=== PATIENT | female | born 1965 | race Caucasian/White ===

== ENCOUNTER → 2016-10-23 | Outpatient (CLI) | payer OTHER | LOC: WI 15:26 | PROVIDERS: ATTEND Specialist | DX: Z12.31 Encounter for screening mammogram for malignant neoplasm of breast (principal) | CPT/HCPCS: 77067; G0202 ==

== ENCOUNTER 2019-05-05 06:48 | Day surgery (SDC) | payer BC, OTHER ==
[~2019-05-05 06:48] MED LIST: KETOROLAC TROMETHAMINE 0.45% 4 DROP/0.4 ML DROPERETTE OS PRN
[2019-05-05] MEDS ORDERED: ONDANSETRON HCL INJ/PF 4 MG/2 ML SDV ONE (07:10)
[2019-05-05] MEDS ORDERED: FENTANYL CITRATE INJ/PF 100 MCG/2 ML AMPUL ONE (07:11)
[2019-05-05] MEDS ORDERED: MIDAZOLAM 2 MG/2 ML INJ ONE ×2 (07:11→08:28)
[2019-05-05] MEDS: TETRACAINE HCL 0.5% OPH SOLN 4 ML OS PRN ×4 (07:20→07:58)
[2019-05-05] MEDS: CYCLOPENTOLATE 0.2%/PHENYLEPHRINE 1% OPH SOLN 2 ML OS PRN ×3 (07:20→07:40)
[2019-05-05] MEDS: BESIFLOXACIN HCL 0.6% OPH SUSP 5 ML BOTTLE OS PRN ×4 (07:20→08:22)
[2019-05-05] MEDS: TROPICAMIDE 1% OPH SOLN 15 ML OS PRN ×3 (07:20→07:40)
[2019-05-05] MEDS: CHONDR SU A NA/HYALUR INTRAOC KIT (SURGICARE) ONE ×2 (08:08)
[2019-05-05] MEDS: EPINEPHRINE INJ/PF 1 MG/1 ML AMPULE ONE ×2 (08:08)
[2019-05-05] MEDS: LIDOCAINE 1%/PHENYLEPHRINE 1.5% 1 ML VIAL ONE ×2 (08:08)
[2019-05-05] MEDS: DORZOLAMIDE HCL 2%/TIMOLOL MALEAT 0.5% OPH SOLN 10 ML OS PRN ×2 (08:22)
--- NOTE | 2019-05-05 13:53 | Operative Report ---
Operative Report-[facility] Operative Report: DATE OF SURGERY: 05/05/2019 PREOPERATIVE DIAGNOSIS: Cataracts, left eye POSTOPERATIVE DIAGNOSIS: Cataract, left eye OPERATION: Cataract extraction with insertion of an IOL of the left eye. Intraocular Lens Model: [21.0 sn60wf] reason for surgery was increased glare at night making it difficulty to drive SURGEON: Dean Sawyer MD ANESTHESIA: Topical PROCEDURE: After obtaining appropriate consent, the patient's left eye was prepped and draped in a sterile fashion as well as the surgeon in the sterile manner and cataract surgery was started. First a paracentesis blade was used to make a side-port incision. Viscoelastic was used to inflate the anterior chamber. Next a 2.4 mm incision was made with a 2.4 mm blade, clear corneal temporarily. A continuous capsulorrhexis was made using a cystotome and Utrata forceps. Following this hydrodissection was carried out to make commands fully loose and mobile and it was rotated 90 degrees. Following this, a divide and conquer technique was used to phacoemulsify the lens. The remaining cortex was removed with an irrigation/aspiration. Provisc was instilled into the capsular bag to inflate the bag.The intracular lens was placed. The remaining viscoelastic material was removed with irrigation/aspiration. Following this, the incision was found to be watertight. Besivance and Cosopt was instilled into the eye and a protective shield was placed over the eye. The patient was turned to the postoperative recovery in a stable condition.
== END 2019-05-05 09:05 | disposition home or self-care (01) ==
LOC: SC 06:48
PROVIDERS: ATTEND Internal Medicine
DX: H25.13 Age-related nuclear cataract, bilateral (principal); H40.013 Open angle with borderline findings, low risk, bilateral; H53.2 Diplopia; H04.123 Dry eye syndrome of bilateral lacrimal glands
CPT/HCPCS: 66984; V2632; J2250; J3490 ×2; J0171; J3010; J2405; J2370; 142

== ENCOUNTER 2019-05-26 06:34 | Day surgery (SDC) | payer BC ==
[~2019-05-26 06:34] MED LIST changes: +KETOROLAC TROMETHAMINE 0.45% 4 DROP/0.4 ML DROPERETTE OD PRN; -KETOROLAC TROMETHAMINE 0.45% 4 DROP/0.4 ML DROPERETTE OS PRN
[2019-05-26] MEDS: BESIFLOXACIN HCL 0.6% OPH SUSP 5 ML BOTTLE OD PRN ×4 (06:55→07:46)
[2019-05-26] MEDS: TROPICAMIDE 1% OPH SOLN 15 ML OD PRN ×3 (06:55→07:15)
[2019-05-26] MEDS: CYCLOPENTOLATE 0.2%/PHENYLEPHRINE 1% OPH SOLN 2 ML OD PRN ×3 (06:55→07:15)
[2019-05-26] MEDS: TETRACAINE HCL 0.5% OPH SOLN 4 ML OD PRN ×3 (06:55→07:28)
[2019-05-26] MEDS ORDERED: MIDAZOLAM 2 MG/2 ML INJ ONE (06:58)
[2019-05-26] MEDS ORDERED: ONDANSETRON HCL INJ/PF 4 MG/2 ML SDV ONE (06:58)
[2019-05-26] MEDS ORDERED: FENTANYL CITRATE INJ/PF 100 MCG/2 ML AMPUL ONE (06:58)
[2019-05-26] MEDS ORDERED: EPINEPHRINE INJ/PF 1 MG/1 ML AMPULE ONE (07:11)
[2019-05-26] MEDS ORDERED: LIDOCAINE 1%/PHENYLEPHRINE 1.5% 1 ML VIAL ONE (07:11)
[2019-05-26] MEDS ORDERED: CHONDR SU A NA/HYALUR INTRAOC KIT (SURGICARE) ONE (07:12)
[2019-05-26] MEDS: DORZOLAMIDE HCL 2%/TIMOLOL MALEAT 0.5% OPH SOLN 10 ML OD PRN ×2 (07:46)
--- NOTE | 2019-05-26 14:00 | Operative Report ---
Operative Report-[facility] Operative Report: DATE OF SURGERY: [05/26/2019] PREOPERATIVE DIAGNOSIS: Cataract, right eye POSTOPERATIVE DIAGNOSIS: Cataract, right eye OPERATION: Cataract extraction with insertion of an IOL of the right eye. Intraocular Lens Model: [21.5 sn60wf] Reason for surgery was difficulty from glare from headlights SURGEON: Dean Sawyer MD ANESTHESIA: Topical PROCEDURE: After obtaining appropriate consent, the patient's right eye was prepped and draped in a sterile fashion as well as the surgeon in the sterile manner and cataract surgery was started. First a paracentesis blade was used to make a side-port incision. Viscoelastic was used to inflate the anterior chamber. Next a 2.4 mm incision was made with a 2.4 mm blade, clear corneal temporarily. A continuous capsulorrhexis was made using a cystotome and Utrata forceps. Following this hydrodissection was carried out to make the karen fully loose and mobile and it was rotated. Following this, a divide and conquer technique was used to phacoemulsify the karen. The remaining cortex was removed with an irrigation/aspiration. Provisc was instilled into the capsular bag to inflate the bag. The intraocular lens was placed. The remaining viscoelastic material was removed with irrigation/aspiration. Following this, the incision was found to be watertight. Besivance and Cosopt was instilled into the eye and a protective shield was placed over the eye. The patient was reurned to the postoperative recovery in a stable condition.
== END 2019-05-26 08:19 | disposition home or self-care (01) ==
LOC: SC 06:34
PROVIDERS: ATTEND Internal Medicine
DX: H25.11 Age-related nuclear cataract, right eye (principal); Z96.1 Presence of intraocular lens
CPT/HCPCS: 66984; 00142; V2632; J2250; J3490 ×2; J0171; J3010; J2405; J2370; 142

== ENCOUNTER → 2019-06-27 | Outpatient (CLI) | payer BC ==
--- NOTE | 2019-06-28 09:08 | RADIOLOGY REPORT (SQ) ---
EXAM DESCRIPTION: U/S NON-OB PELVIS TV W/O DOP COMPLETED DATE/TIME: 06/27/2019 7:42 pm REASON FOR STUDY: (N95.0)POSTMENOPAUSAL BLEEDING N95.0 POSTMENOPAUSAL BLEEDING COMPARISON: None. TECHNIQUE: Dynamic and static grayscale images acquired of the pelvis via transvaginal approach and recorded on PACS. Additional selected color Doppler and spectral images recorded. LIMITATIONS: None. FINDINGS: UTERUS: Contour normal. No mass. ENDOMETRIAL STRIPE: No focal or generalized thickening. No masses. CERVIX: A 1.0 x 1.1 x 1.2 cm solid-appearing mass is suggested within the region of the cervix. Blo od flow demonstrated. Considerations for this finding includes polyp, fibroid, as well as other unde rlying pathology. No nabothian cysts. RIGHT OVARY AND DOPPLER: Not visualized due to overlying bowel gas. LEFT OVARY AND DOPPLER: Normal size. A 3.5 x 3.8 x 2.8 cm cyst with internal echoes, may be hemorrha gic. Normal arterial vascular flow without evidence for torsion. FREE FLUID: None noted. OTHER: No other significant finding. MEASUREMENTS: UTERUS: 4.9 x 2.5 x 2.8 cm ENDOMETRIAL STRIPE: 2 mm RIGHT OVARY: Not visualized LEFT OVARY: 4.1 x 4.5 x 3.7 cm IMPRESSION: 1. A solid-appearing well-circumscribed mass within the region of the cervix. Consider ations for this finding includes polyp, fibroid, as well as other underlying pathology. Correlation suggested. 2. Left ovarian cyst contains internal echoes, may be on the basis of hemorrhagic cyst. Please see below. 3. The right ovary is not visualized due to overlying bowel gas. COMMENT: Postmenopausal Cysts US Benign-Hemorrhagic cyst:Early postmenopausal (50-55 yo) any size: followup US to ensure resolution, Late postmenopausal (>55 yo): consider surgical evaluation TECHNICAL DOCUMENTATION: JOB ID: [id number] [employer]- All Rights Reserved Reading location - IP/workstation name: [email or web address]
== END ==
LOC: RAD 18:02
PROVIDERS: ATTEND Family Medicine
DX: N95.0 Postmenopausal bleeding (principal)
CPT/HCPCS: 76830

== ENCOUNTER 2019-07-04 07:14 | Emergency (ER) | payer BC ==
[2019-07-04 08:17] LABS: ABSOLUTE EOSINOPHILS # (AUTO) 0.1 10^3/uL (0.0-0.6); ABSOLUTE LYMPHOCYTES (AUTO) 1.5 10^3/uL (0.5-4.7); ABSOLUTE MONOCYTES (AUTO) 0.5 10^3/uL (0.1-1.4); ABSOLUTE NEUT (AUTO) 3.6 10^3/uL (1.7-8.2); BASOPHILS % (AUTO) 0.8 % (0-2); EOSINOPHILS % (AUTO) 1.3 % (0-6); HEMATOCRIT 41.7 % (36.0-47.0); HEMOGLOBIN 13.9 g/dL (12.0-15.5); LYMPHOCYTES % (AUTO) 26.4 % (13-45); MEAN CORPUSCULAR HEMOGLOBIN 29.4 pg (27.0-33.4); MEAN CORPUSCULAR HGB CONC 33.3 g/dL (32.0-36.0); MEAN CORPUSCULAR VOLUME 88 fl (80-97); MONOCYTES % (AUTO) 9.3 % (3-13); PLATELET COUNT 229 10^3/uL (150-450); RED BLOOD COUNT 4.72 10^6/uL (3.72-5.28); RED CELL DISTRIBUTION WIDTH 12.6 % (11.5-14.0); SEGMENTED NEUTROPHILS % (AUTO) 62.2 % (42-78); TOTAL CELLS COUNTED % (AUTO) 100 %; WHITE BLOOD COUNT 5.8 10^3/uL (4.0-10.5)
[2019-07-04 08:40] LABS: ALKALINE PHOSPHATASE 89 U/L (38-126); ANION GAP 9 (5-19); ASPARTATE AMINO TRANSFERASE 16 U/L (14-36); BILIRUBIN,DIRECT 0.1 mg/dL (0.0-0.4); BILIRUBIN,TOTAL 0.3 mg/dL (0.2-1.3); BLOOD UREA NITROGEN 16 mg/dL (7-20); CALCIUM 9.5 mg/dL (8.4-10.2); CARBON DIOXIDE 25 mmol/L (22-30); CHLORIDE 109 mmol/L (98-107); GLUCOSE 96 mg/dL (75-110); POTASSIUM 4.1 mmol/L (3.6-5.0); TOTAL PROTEIN 6.8 g/dL (6.3-8.2)
--- NOTE | 2019-07-04 09:26 | ER Document Report ---
ED General - General Chief Complaint: General Weakness Stated Complaint: WEAKNESS, IRREGULAR SPEECH Time Seen by Provider: 07/04/19 09:24 Primary Care Provider: ANUJA ZAFAR MD [Primary Care Provider] - Follow up as needed Mode of Arrival: Ambulatory Information source: Patient, Relative - and adult daughter very supportive, [facility] Records TRAVEL OUTSIDE OF THE [place] IN LAST 30 DAYS: No - HPI Notes: Reviewed patient [facility] EMR notes, (TVUS ~w/a 114 w/up limited episode of light postmenopausal VB - showed cyst at cervix. Patient says her doctors are scheduling cervical Bx. She also has recently undergone biopsy newly discovered thyroid nodules. Her primary care is also referred to sleep med & recently underwent full sleep study--results pending. denies any trauma recently or history of trauma/falls. Has h/o depression, but over the last months feels things are falling apart, like she is having to go through multiple medical W/u. EtOH denies any etoh use or history, denies a feeling of dependence on any medications, denies any illicit drugs or tobacco. 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 eg she says she was having difficulty getting an IV pump programed--a once/familiar and easy task. 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 She ultimately presents today b/c feeling so fatigued and generally slower in her motor movements, and thinking. She was referred by her PCP whom she very much has a good relationship withto neurologist. for she does report of some bilateral hand numbness that happened months ago - MRI brain " fine" after meeting her his assessment was that "this could be a pseudodementia", she said her Pcp thought was not an appropriate dx Her doctors both primary and another are working hard to help her with her FMLA forms and trying to ensure she will not lose her job if possible from this. They also referred her for a formal neurocognitive eval which is coming up, recent sleep study (results pending now), thyroid biopsies path (pending now), bX cervical mass pending. last actual lab w/u few m/a. denies any pelvic or abdominal or any pain otherwise. No weight changes, no rashes. No double vision or other vision changes. No passing out or near passing out, SOB, no F/C/S or GRAHAM. She denies changes in meds. She says has done comprehensive and thorough W/U, E.G.for any vitamin deficiencies. - Related Data Allergies/Adverse Reactions: No Known Drug Allergies Allergy (Verified 05/20/19 09:02) Home Medications: topamax. fibrin. welbutrin. zanax. trazadone. gabapentin. mobic Past Medical History - General Information source: Relative - Social History Smoking Status: Never Smoker Frequency of alcohol use: None Drug Abuse: None Lives with: Family Family History: Reviewed & Not Pertinent Patient has suicidal ideation: No Patient has homicidal ideation: No - Past Medical History Cardiac Medical History: Denies: Hx Coronary Artery Disease, Hx Heart Attack, Hx Hypertension Pulmonary Medical History: Denies: Hx Asthma, Hx Bronchitis, Hx COPD, Hx Pneumonia Neurological Medical History: Denies: Hx Cerebrovascular Accident, Hx Seizures GI Medical History: Denies: Hx Hepatitis, Hx Hiatal Hernia, Hx Ulcer Musculoskeletal Medical History: Denies Hx Arthritis Infectious Medical History: Denies: Hx Hepatitis Past Surgical History: Denies: Hx Mastectomy, Hx Open Heart Surgery, Hx Pacemaker - Immunizations Hx Diphtheria, Pertussis, Tetanus Vaccination: Yes Review of Systems - Review of Systems Constitutional: See HPI, Weakness. denies: Chills, Diaphoresis, Fever, Weight gain, Weight loss EENT: No symptoms reported Cardiovascular: denies: Chest pain, Palpitations, Heart racing, Orthopnea, Dyspnea, Syncope, Dizziness, Lightheaded, Edema, Paroxysmal Nocturnal Dysp Respiratory: denies: Cough, Hurts to breathe, Short of breath, Sputum, Wheezing Gastrointestinal: denies: Abdomen distended, Abdominal pain, Diarrhea, Nausea, Vomiting, Constipation, Poor appetite, Poor fluid intake Genitourinary: denies: Burning, Dysuria, Discharge, Frequency, Flank pain, Hematuria, Pain, Urgency, Retention Female Genitourinary: See HPI. denies: Vaginal discharge Musculoskeletal: No symptoms reported Skin: No symptoms reported Hematologic/Lymphatic: No symptoms reported Neurological/Psychological: See HPI, Weakness, Speech impairment, Numbness. denies: Hallucinations, Homicidal ideation, Loss of power, Paralysis, Seizure, Lost consciousness, Headaches, Suicidal ideation, Tingling, Tremor Physical Exam - Vital signs Vitals: Temp Pulse Resp BP Pulse Ox 97.5 F 76 14 123/81 98 07/04/19 07:19 07/04/19 07:19 07/04/19 07:19 07/04/19 07:19 07/04/19 07:19 - General General appearance: Appears well, Alert In distress: None - HEENT Head: Normocephalic, Atraumatic. No: Tenderness Eyes: No: Pale conjunctiva, Periorbital edema, Scleral icterus Conjunctiva: No: Injected Extraocular movements intact: Yes Pupils: PERRL - consensual reflex pupils intact. Nerve palsy: No Visual carter normal: Yes - grossy to finger counting all quadrants. no peripheral field loss Ears: Normal External canal: Normal Tympanic membrane: Normal Hearing loss: No: Conduction loss, Sensorineural loss Sinus: Normal Nasal: Normal Mucous membranes: Moist Pharynx: No: Erythema, Exudate, Uvular edema Neck: Supple. No: Posterior cervical chain, Carotid bruit, Lymphadenopathy, Meningismus, Neck mass, Shotty nodes, Thyromegally - Respiratory Respiratory status: No respiratory distress. No: Respiratory distress, Depressed respirations, Labored, Tachypnea Chest status: Nontender. No: Ecchymosis, Pain on movement, Pain with deep breathing, Wounds, Prolonged expirations Breath sounds: Normal. No: Decreased air movement, Nonproductive cough, Pr oductive cough, Rales, Rhonchi, Stridor, Wheezing Chest palpation: Normal. No: Tender, Ecchymosis, Wounds - Cardiovascular Rhythm: Regular Heart sounds: Normal auscultation Murmur: No Gallop: None auscultated Pulses: Normal: Radial, Posterior tibial, Dorsalis pedis Normal capillary refill: Yes - Abdominal Inspection: No: Striae, Wounds, Obese Distension: No distension. No: Distended bladder Tenderness: Nontender. No: McBurney's point, Guarding, Rebound Organomegaly: No organomegaly - Back Back: No: Tender, Deformity/step-off, CVA tenderness, Vertebra tenderness - Extremities General upper extremity: Nontender, Normal color, Normal ROM, Normal strength, Normal temperature. No: Edema General lower extremity: Nontender, Normal color, Normal ROM, Normal strength, Normal temperature, Normal weight bearing. No: Edema Shoulder: Normal Arm: Normal Elbow: Normal Forearm: Normal Wrist: Normal - Neurological Neuro grossly intact: Yes Cognition: No: Confused, Inattentive, Short term memory loss - I did not perform any standardized mental status screenings Orientation: AAOx4 Robards Coma Scale Eye Opening: Spontaneous Robards Coma Scale Verbal: Oriented Kianna Coma Scale Motor: Obeys Commands Robards Coma Scale Total: 15 Speech: Normal. No: Dysarthria Cranial nerves: No: Facial palsy, Gaze palsy, Sensory deficit, Tongue deviation Cerebellar coordination: Heel-seay - Bilaterally intact., Finger-nose rhombey - Bilaterally intact. 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 No: Involuntary movements, Pronator drift, Weakness Sensory: Pin-prick - Able to discriminate sharp and dull proximal and most distal aspects grossly of UE/LE, + intact positional sense R and L great toe joints (-)visual input. (-) Romberg sign. Able to turn around no difficulty initiating gait no other aspects of gait pathology to suggest motor disease such as Parkinson's. No clonus on forced flexion ankle plantarflexion no other increase in muscular tone or laxity. No muscle fatigability that is obvious walking around the room talking to me eyes open. - Psychological Associated symptoms: Normal affect - Mood and affect congruent depressed but not extremely labile, are appropriate to the content of our conversation., Psychomotor depression, Tearful. No: Aggressive, Agitated, Angry, Anxious, Flight of ideas, Psychomotor agitation, Restlessness, Tangential speech, Unable to sleep, Uncooperative - Skin Skin Temperature: Warm Skin Moisture: Dry Skin Color: Normal Course - Re-evaluation Re-evalutation: 07/04/19 23:05 I reviewed patient's labs I told her the TSH was pending but we would call her if that was positive and we could have her follow-up with her doctor. I did encourage her to keep her sleep study obviously follow-up in the 2 biopsies, and to keep the neurocognitive evaluation because that can be super helpful. We agreed the term pseudodementia does not help much and the fact that she has had actual decline in her functioning which is new for her and not related to any substances, and I agree that further evaluation is needed to get a more global picture of her frontal lobe/and overall cognitive functions which are difficult to test in a single doctor's visit. Also educated on warning signs to look for double vision change in vision severe headache weakness or clumsiness in one area of the body or any facial droop or speech changes word slurring. Any trouble breathing or fever chills sweats or vomiting she agreed she understood will follow up with PCP very soon for I think a good work-up and plan. - Vital Signs Vital signs: Temp Pulse Resp BP Pulse Ox 97.5 F 64 16 104/52 L 98 07/04/19 07:19 07/04/19 11:00 07/04/19 11:00 07/04/19 11:00 07/04/19 11:00 - Laboratory Result Diagrams: 07/04/19 08:00 07/04/19 08:00 Laboratory results interpreted by me: 07/04/19 08:00 Chloride 109 H Discharge - Discharge Clinical Impression: Stress and adjustment reaction, Thyroid nodule, Cervical mass Fatigue Qualifiers: Fatigue type: unspecified Qualified Code(s): R53.83 - Other fatigue Condition: Fair Disposition: HOME, SELF-CARE Additional Instructions: Today in the emergency department, your CBC and your CMP which look at your blood count and your metabolic chemistry panel are within normal limits. We will call you if you have an abnormal TSH which is a thyroid screening lab. It is reassuring that I performed a full neurologic exam and it was not focal or localizing and fully intact. Please ensure you diligently follow-up on the sle ep study as well as the thyroid biopsy and cervical biopsy. It sounds like you have a great primary doctor and she can continue to help you navigate the adjustment through your functioning and work. She also can help guide for mental health resources just as counseling can help when you are going through stressful times like these which would be the case for anyone. Continue to be social and do activities you love with your family even if you do not feel like it right now because that can help during these times. Also please keep your appointment for the full neuro-cognitive exam. Referrals: ANUJA ZAFAR MD [Primary Care Provider] - Follow up as needed
[2019-07-04 11:01] VITALS: BP 104/52
== END 2019-07-04 11:01 | disposition home or self-care (01) ==
LOC: ER 07:14
DX: F43.9 Reaction to severe stress, unspecified (principal); R53.83 Other fatigue; E04.1 Nontoxic single thyroid nodule; N88.8 Other specified noninflammatory disorders of cervix uteri; R41.3 Other amnesia; R53.1 Weakness; R20.0 Anesthesia of skin; R47.9 Unspecified speech disturbances; F32.9 Major depressive disorder, single episode, unspecified; Z79.899 Other long term (current) drug therapy
CPT/HCPCS: 36415; 80053; 84443; 85025; 99283

== ENCOUNTER → 2019-08-11 | Outpatient (CLI) | payer BC | LOC: OD 13:37 | PROVIDERS: ATTEND Family Medicine | DX: T43.215A Adverse effect of selective serotonin and norepinephrine reuptake inhibitors, initial encounter (principal); X58.XXXA Exposure to other specified factors, initial encounter | CPT/HCPCS: 36415; 84260 ==

== ENCOUNTER → 2019-08-16 | Outpatient (CLI) | payer BC ==
--- NOTE | 2019-08-16 09:11 | ST Modified Barium Swallow ---
Recommendation - Recommendations Recommendations: No overt pharyngeal swallowing deficits seen, patient did report some globus sensation without any material being in the pharynx. Patient may benefit from a GI consult due to the nature of some of the swallowing complaints. The patient also expressed concern regarding changes in speech and voice. A speech production or speech and language evaluation may be indicated to further assess these areas. A physician signature will act as an order for speech and language assessment. Medical Diagnoses - Medical Diagnoses Medical Diagnosis Description & ICD-10 Code(s): dysphagia R13.10 Other Medical Diagnoses/Co-Morbidities: per patient report: reflux, being followed for neurology work up, no neuro diagnosis at this time ST Modified Barium Swallow - General Date: 08/16/19 Referring Physician: Dr Justine Adam Date of Onset: 02/07/19 - approximate onset date Reason for Referral: difficulty swallowing - History History obtained from: Patient -: Medical - per patient report: patient states that she feels that her "throat feels weak". She also states that she no longer has a gag reflex. She reports coughing with PO, especially with solids. She also reports oral numbness and altered taste. This has been going on for approximately 6 months with no known triggering event. She also has a history of reflux, and is currently being followed by neurology at [place]. Of note, the patient also reports changes in her speech and in voice quality. She also states that she feels changes in her ability to yawn, and that she has uncontrollable belches, which is new. Medications: per physician note: trazodone, wellbutrin, xanax, benztropine, viibryd, mobic, detrol, gabapentin, fioricet, topamax. Per patient report: prilosec Allergies: none reported - Functional Status Prior Functional Status: INDEPENDENT: feeding - no deficits Current Functional Limitations: feeding - effortful swallowing - Subjective Patient/caregiver goal(s): better swallow Cognitive-Linguistic Function: WNL Speech Intelligibility: WNL Current Nutritional Means: PO Current PO diet: Regular Current symptoms: Coughing Pain: Patient reports, 0/5 - Objective Assessment: Upright, Left Lateral - Food Trials Used Food trials used: Thin liquids, Pureed, Regular The patient: Was Able to Self Feed - Oral-Motor Skills Dentition: Full Velo-pharyngeal function: Unremarkable Laryngeal Function: Volitional Cough, Volitional Swallow, clear voicing - Assessment Oral prep: Normal Labial closure: Adequate Leakage: None Mastication: Adequate Lingual Movement: Normal Oral stage: Normal for this Procedure - Pharyngeal Stage Initiation of Pharyngeal Stage Reflex: Normal Decreased laryngeal elevation: Yes - mild Reduced Velopharyngeal Closure: no Reduced pressure generation: No reduced tongue-based retraction: No Pre-swallow pooling in valleculae: None Pre-Swallow pooling in pyriforms: None Reduced Thyro-Hyoid approximation: No Reduced epiglottic excursion: No Reduced pharyngeal peristalsis/contraction: No Post-Swallow Residuals: throughout pharynx - mild, with puree only Reduced Cricopharyngeal opening: No - Fall Risk Assessment Medications/Conditions that increase fall risks include: Antidepressants, sedatives, anti-arrhythmic, diuretic, benzodiazipenes, neuroleptics. BP regulation problems, cardiac problems, balance or gait deficits, neurological problems. Fall Risk Actions Taken: No action needed - Behavioral Observations During evaluation process patient: was cooperative, able to answer questions, provided medical history - Treatment / Educational Needs: Treatment/Education Needs: Treatment consisted of patient education on the role of the Speech Pathologist. Patient's plan of care and golas were communicated as well as scheduling and attendance policies. Recommendations for initial home program were shared. Patient demonstrated understanding and verbalized agreemen t. Initial home program recommendations: Discussed use of "hard swallow" with meals and as an exercise as patient reports that she feels her swallow is weak. - Impression/Summary Laryngeal Penetration: Flash - with large subsequent sips of thin liquid only Tracheal Aspiration: no Patient presents with: Normal swallow at eval Risk of Aspiration: Minimal Evaluation and Findings: Patient presents with pharyngeal phase swallowing within normal limits. Patient did have some reported globus when no material was seen in pharynx. Flash penetration seen with large subsequent sips of thin liquid, this redirected easily. - Recommendations Solid diet recommendations: Regular Liquid Diet Modification: Thin Pt/Family education and followup with MD: Yes Reflux Precautions: Taught to Patient Recommended techniques: Fully Upright During Meal, Small Bites and Sips Information, Precautions and Recommendations: Patient (Written), Patient (Verbal) Other recommendations: Patient has an outpatient appointment scheduled for swallowing difficulty. Based on results of today's MBSS, outpatient dysphagia therapy is not indicated. However, the patient is also having complaints of changes in speech ability, and this may warrant additional assessment. - Time Total Time: 30 - Plan of Care Strategies to optimize patient understanding include:: ongoing assessment of educational needs, implementation of educational strategies, and re-education. - - -: Thank you for the opportunity to work with this patient and his/her family. Should you have any questions about this patient's plan or progress, I can be reached at [phone].
--- NOTE | 2019-08-16 15:52 | RADIOLOGY REPORT (SQ) ---
EXAM DESCRIPTION: PAWEL SWALLOW COMPLETED DATE/TIME: 08/16/2019 8:45 am REASON FOR STUDY: DYSPHAGIA R13.10 DYSPHAGIA, UNSPECIFIED oral weakness COMPARISON: None. TECHNIQUE: Videofluoroscopic swallowing examination was performed in conjunction with speech patholo gy. Videofluoroscopic imaging was obtained and reviewed and these are the findings: RADIATION DOSE: 1 minutes 36 seconds of fluoroscopy was used. 1 images saved to PACS. LIMITATIONS: None FINDINGS: The patient was brought into the fluoro room and placed upright on a modified barium swall ow chair. The patient was then given multiple consistencies mixed with barium to swallow under live fluoroscopic video guidance. According to the Speech Pathologist there was trace laryngeal penetrati on without aspiration. IMPRESSION: TRACE LARYNGEAL PENETRATION WITHOUT ASPIRATION WITH THIN LIQUIDS. PLEASE SEE SPEECH PATH OLOGIST REPORT FOR OTHER FINDINGS AND RECOMMENDATIONS. COMMENT: Quality ID [id number]: Final reports for procedures using fluoroscopy that document radiation exp osure indices, or exposure time and number of fluorographic images (if radiation exposure indices are not available) TECHNICAL DOCUMENTATION: JOB ID: [id number] [employer]- All Rights Reserved Reading location - IP/workstation name: [email or web address]
== END ==
LOC: RAD 08:03
PROVIDERS: ATTEND Family Medicine
DX: R13.10 Dysphagia, unspecified (principal)
CPT/HCPCS: 74230

== ENCOUNTER → 2019-08-26 | Outpatient (CLI) | payer BC ==
--- NOTE | 2019-08-29 11:32 | WOMENS IMAGING REPORT ---
EXAM DESCRIPTION: 3D SCREENING MAMMO BILAT COMPLETED DATE/TIME: 08/26/2019 8:45 am REASON FOR STUDY: Z12.31 SCREENING MAMMO Z12.31 ENCNTR SCREEN MAMMOGRAM FOR MALIGNANT NEOPLASM OF B RE COMPARISON: Multiple since 2008 EXAM PARAMETERS: Views: Standard craniocaudal and mediolateral oblique views of each breast recorded using digital acquisition and breast tomosynthesis. Read with the assistance of CAD. .[facility] - [employer] Account Assistant Version 9.2 LIMITATIONS: None. FINDINGS: No suspicious masses, suspicious calcifications or architectural distortion. No areas of c oncern. IMPRESSION: NEGATIVE MAMMOGRAM. BIRADS 1. BREAST DENSITY: b. There are scattered areas of fibroglandular density. BIRAD: ASSESSMENT: 1 NEGATIVE RECOMMENDATION: ROUTINE SCREENING Please continue yearly bilateral screening mammography/tomosynthesis in August 2020 COMMENT: The patient has been notified of the results by letter per SA requirements. Additional no tification policies are in place for contacting patient with suspicious or incomplete findings. Quality ID #[id number]: The [employer] recommends an annual screening mammogram for women aged 40 years or over. This facility utilizes a reminder system to ensure that all patients receive reminder letters, and/or direct phone calls for appointments. This includes reminders for routine scr eening mammograms, diagnostic mammograms, or other Breast Imaging Interventions when appropriate. Th is patient will be placed in the appropriate reminder system. TECHNICAL DOCUMENTATION: FINDING NUMBER: (1) ASSESSMENT: (1) JOB ID: [id number] [employer]- All Rights Reserved Reading location - IP/workstation name: [email or web address]
== END ==
LOC: WI 08:25
PROVIDERS: ATTEND Obstetrics & Gynecology Gynecology
DX: Z12.31 Encounter for screening mammogram for malignant neoplasm of breast (principal)
CPT/HCPCS: 77063; 77067

== ENCOUNTER → 2020-03-29 | Outpatient (CLI) | payer BC ==
--- NOTE | 2020-03-29 10:19 | RADIOLOGY REPORT (SQ) ---
EXAM DESCRIPTION: CT ABD/PELVIS WITH IV ORAL; CT CHEST WITH IMAGES COMPLETED DATE/TIME: 03/29/2020 9:01 am REASON FOR STUDY: R91.1 SOLITARY PULMONARY NODULE R91.1 SOLITARY PULMONARY NODULE RENAL FUNCTION: Creatinine 0.9 TECHNIQUE: CT scan of the chest performed using helical scanning technique with dynamic intravenous contrast injection. Images reviewed with lung, soft tissue and bone windows. Reconstructed coronal a nd sagittal MPR images reviewed. All images stored on PACS. CT scan of the abdomen and pelvis performed with intravenous and without oral contrastusing helical s ernesto technique with dynamic intravenous contrast injection. Images reviewed with lung, soft tissu e and bone windows. Reconstructed coronal and sagittal MPR images reviewed. Delayed images for eval uation of the urinary system also acquired and evaluated. All images stored on PACS. All CT scanners at this facility use dose modulation, iterative reconstruction, and/or weight based d osing when appropriate to reduce radiation dose to as low as reasonably achievable (ALARA). [facility]: Dose Right [facility]: CareDose [facility]: Dose Right [facility]: Teradose 4D [facility]: Glyde RADIATION DOSE: CT Rad equipment meets quality standard of care and radiation dose reduction techniq ues were employed. CTDIvol: 13.7 - 21.8 mGy. DLP: 2855 mGy-cm. . LIMITATIONS: None. FINDINGS: CHEST: LUNGS AND PLEURA: No suspicious nodules or masses. Incidental note is made of a right minor fissure fissural lymph node. No focal consolidation or significant interstitial lung disease. No pleural ef fusion. No pneumothorax. HILAR AND MEDIASTINAL STRUCTURES: No identified masses or abnormal nodes. HEART AND VASCULAR STRUCTURES: No aneurysm or dissection. No central pulmonary emboli. No pericardi al effusion. HARDWARE: None. THYROID AND OTHER SOFT TISSUES: No masses. No adenopathy. BONES: Partially imaged ACDF hardware. No acute osseous abnormalities. No suspicious lytic or blast ic osseous lesions. OTHER: No other significant finding. ABDOMEN AND PELVIS: LIVER: Normal size. No masses. No dilated ducts. SPLEEN: Normal size. No focal lesions. PANCREAS: No masses. No significant calcifications. No adjacent inflammation or peripancreatic fluid collections. Pancreatic duct not dilated. GALLBLADDER: Surgically absent. ADRENAL GLANDS: No significant masses or asymmetry. RIGHT KIDNEY AND URETER: No solid masses. No significant calcification. No hydronephrosis or hydroure ter. LEFT KIDNEY AND URETER: No solid masses. No significant calcification. No hydronephrosis or hydrouret er. AORTA AND VESSELS: No aneurysm. No dissection. Renal arteries, SMA, celiac without stenosis. RETROPERITONEUM: No retroperitoneal adenopathy, hemorrhage or masses. BOWEL AND PERITONEAL CAVITY: No masses or inflammatory changes. No free fluid or peritoneal masses. APPENDIX: Normal. ABDOMINAL WALL: Small fat containing umbilical hernia. No masses. PELVIS: Incidental note is made of a 3.9 x 4.2 x 3.8 cm cystic structure expanding the left adnexa ; this demonstrates Hounsfield units consistent with mildly complex fluid. The uterus and right adnexa are normal for modality/ technique. No free fluid. Few pelvic sidewall lymph nodes are not patholo gically enlarged. BONES: A prominent rounded sclerotic focus seen within the right iliac as well as few scattered small er sclerotic foci are unchanged in the study interval, and likely represent benign osseous enostoses. OTHER: No other significant finding. IMPRESSION: 1. Normal CT appearance of the chest. 2. Incidental finding of a 3.9 x 4.2 x 3.8 cm complex cyst involving the left adnexa is retrospectiv francisca present on comparison imaging dated September 2019. Given persistent appearance, consider further evaluation with magnetic resonance imaging of the pelvis. Other chronic and incidental findings as detailed above. TECHNICAL DOCUMENTATION: JOB ID: [id number] Quality ID # [id number]: Final reports with documentation of one or more dose reduction techniques (e.g., Au tomated exposure control, adjustment of the mA and/or kV according to patient size, use of iterative reconstruction technique) 2010 [employer]- All Rights Reserved COMPARISON: None. 09/16/2019 CT CONTRAST TYPE AND DOSE: contrast/concentration: Isovue 350.00 mmol/ml; Total Contrast Delivered: 100 .0 ml; Total Saline Delivered: 72.0 ml Reading location - IP/workstation name: [email or web address]
== END ==
LOC: RAD 08:30
PROVIDERS: ATTEND Internal Medicine Hematology & Oncology
DX: R91.1 Solitary pulmonary nodule (principal)
CPT/HCPCS: 71260; 74177; 82565